=== PATIENT | male | born 1975 | race African-American/Black ===

== ENCOUNTER 2016-12-12 00:47 | Emergency (ER) | payer OTHER ==
[~2016-12-12 00:47] MED LIST: APAP500 PO; CLARITIN10 MG PO; IBUPROFEN 600600 M1 PO; LOPRESSOR25 PO; NOHOMEMEDICATIONS; NORCO 5-325 TA1 EACH PO; ONDANSETRON HCL4 M2 PO; OSELB75 PO; PENICILLIN VK500 M1 PO; PERCOCET 5-3251 EACH PO; PREDNISONE 20 M20 MG PO; ROBAXIN 750 MG750 M1 PO; TRAMADOL 50 MG50 MG PO; VENTOLIN HFA 1818 GM INH
== END 2016-12-12 02:55 | disposition home or self-care (01) ==
LOC: ER 00:47
DX: L03.317 Cellulitis of buttock (principal)

== ENCOUNTER 2020-12-26 22:53 | Emergency (ER) | payer BC ==
[~2020-12-26] VITALS: Ht 167.6 cm; Wt 127.0 kg
[2020-12-26] MEDS ORDERED: TOPROL XL25 MG PO (23:13)
[2020-12-26] MEDS ORDERED: COZAAR 25 MG TA25 M1 PO (23:13)
[2020-12-26] MEDS ORDERED: CHLORTHALIDONE25 MG PO (23:13)
[2020-12-26 23:41] LABS: ABSOLUTE NEUTROPHILS 9.7 thou/uL (1.4-8.2); BASOPHILS 0.4 % (0.0-2.0); EOSINOPHILS 1.2 % (0.0-3.0); HEMATOCRIT 38.9 % (42.0-52.0); LYMPHOCYTES 20.9 % (24.0-44.0); MCH 26.9 pg (26.0-34.0); MCHC 33.5 g/dL (28.0-37.0); MCV 80.2 fL (80.0-100.0); MONOCYTES 6.3 % (1.0-8.0); PLATELET COUNT 268 thou/uL (150-400); POLYS 71.2 % (36.0-66.0); RBC 4.86 mil/uL (4.50-6.00); RDW 17.1 % (10.5-14.5); WBC 13.6 thou/uL (4.0-11.0)
[2020-12-26 23:44] LABS: ANION GAP 6 mmol/L (7-16); BUN 14 mg/dL (7-18); CALCIUM 9.3 mg/dL (8.5-10.1); CHLORIDE 102 mmol/L (98-107); CO2 34 mmol/L (21-32); CREATININE 1.3 mg/dL (0.7-1.3); GLUCOSE 109 mg/dL (74-106); POTASSIUM 3.4 mmol/L (3.5-5.1); SODIUM 142 mmol/L (136-145)
[2020-12-26 23:55] LABS: ALBUMIN 3.7 g/dL (3.4-5.0); DIRECT BILIRUBIN < 0.1 mg/dL (<0.1-0.2); MAGNESIUM 1.9 mg/dL (1.8-2.4); SGOT 19 U/L (15-37); SGPT 27 U/L (16-63); TOTAL BILIRUBIN 0.4 mg/dL (0.2-1.0); TOTAL PROTEIN 7.6 g/dL (6.4-8.2); TROPONIN-I <0.06 ng/mL (<0.06)
[2020-12-27] MEDS ORDERED: MOBIC15 MG PO (00:49)
[2020-12-27 01:38] VITALS: BP 120/78
--- NOTE | 2020-12-27 07:39 | EKG ---
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 : 1975 Requested By: Joyce Burrell Order Number: [id number] MD: Jonel Dee Measurements Intervals [place] Rate: 92 P: 67 [place]: 177 QRS: -1 QRSD: 87 T: 7 QT: 342 QTc: 424 Interpretive Statements Sinus rhythm Anteroseptal infarct, age indeterminate Baseline wander in lead(s) V4,V5,V6 Compared to ECG 08/11/2016 16:08:54 Myocardial infarct finding now present Sinus tachycardia no longer present Electronically Signed On 12-27-2020 7:38:49 CDT by Jonel Dee [email or web address] <ELECTRONICALLY SIGNED> By: Jonel Dee MD, [facility] 12/27/20 [id number] [id number] Jonel Dee MD, [facility] /EPI
== END 2020-12-27 01:40 | disposition home or self-care (01) ==
LOC: ER 22:53
PROVIDERS: Emergency Medicine
DX: R00.2 Palpitations (principal); R07.89 Other chest pain; I10 Essential (primary) hypertension; Z79.51 Long term (current) use of inhaled steroids; Z79.899 Other long term (current) drug therapy

== ENCOUNTER → 2021-01-17 | Outpatient (CLI) | payer BC ==
[~2021-01-17] MED LIST changes: +CHLORTHALIDONE25 MG PO; +COZAAR 25 MG TA25 M1 PO; +MOBIC15 MG PO; +TOPROL XL25 MG PO
== END ==
LOC: SJCVCIMAG 06:58
PROVIDERS: ATTEND Internal Medicine Cardiovascular Disease
DX: I49.3 Ventricular premature depolarization (principal); I11.9 Hypertensive heart disease without heart failure